=== PATIENT | male | born 2005 | race Hispanic/Latino ===

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

== ENCOUNTER 2024-05-15 20:31 | Emergency (ER) | payer OTHER, SELFPAY ==
[2024-05-15 20:56] LABS: #Basophils 0.04 10x3/uL (0.0-0.2); %Basophils 0.3 % (0.0-1.0); %Eosinophils 0.4 % (0.0-10.0); %Lymphocytes 13.3 % (28.0-48.0); %Neutrophils 77.5 % (31.0-61.0); Hematocrit 45.4 % (42.0-52.0); Hemoglobin 15.5 g/dL (14.0-18.0); Mean Corpuscular HGB CONC 34.1 g/dL (32.0-36.0); Mean Corpuscular Hemoglobin 31.6 pg (25.0-35.0); Mean Corpuscular Volume 92.7 fL (78.0-98.0); Mean Platelet Volume 9.7 fL (7.4-10.4); Platelet Count 288 10x3/uL (130-400); RBC Distribution Width 12.1 % (11.5-14.5)
[2024-05-15 21:15] LABS: ALT (SGPT) 21 U/L (8-55); AST (SGOT) 17 U/L (10-45); Albumin 3.9 g/dL (3.5-5.0); Alkaline Phosphatase 120 U/L (50-130); Anion Gap 16 mmol/L (10-20); BUN (Urea Nitrogen) 9 mg/dL (8.4-21.0); Bilirubin, Total 1.5 mg/dL (0.2-1.2); Calc. Creatinine Clearance 0 mL/min (70-130); Calcium 9.3 mg/dL (7.8-10.44); Carbon Dioxide 22 mmol/L (22-29); Chloride 100 mmol/L (98-107); Estimated GFR 128; Globulin 3.7 g/dL (2.4-3.5); Glucose 96 mg/dL (70-105); Potassium 3.5 mmol/L (3.5-5.1); Protein, Total 7.6 g/dL (6.0-8.3); Sodium 134 mmol/L (136-145)
[2024-05-15] MEDS ORDERED: Morphine 4 MG/ML VIAL ONE (21:23)
[2024-05-15] MEDS ORDERED: Ketorolac Tromethamine 30 MG (1 mL) VIAL ONE (21:24)
[2024-05-15] MEDS ORDERED: Ondansetron PF 4 MG/2 ML Vial ONE (21:24)
== END 2024-05-15 23:12 | disposition short-term general hospital (02) ==
LOC: ERS 20:31
DX: S02.5XXA Fracture of tooth (traumatic), initial encounter for closed fracture (principal); S02.609A Fracture of mandible, unspecified, initial encounter for closed fracture; V86.55XA Driver of 3- or 4- wheeled all-terrain vehicle (ATV) injured in nontraffic accident, initial encounter
CPT/HCPCS: 36415; 70450; 70486; 72125; 80053; 85025; 96374; 96375; J1885; J2272; J2405